=== PATIENT | male | born 1965 | race African-American/Black ===

== ENCOUNTER 2017-08-13 10:23 | Inpatient (IN) | payer SELFPAY ==
[~2017-08-13] VITALS: Ht 160 cm; Wt 67.4 kg
[2017-08-13] VITALS (11 sets, daily range): BP systolic 100–151; BP diastolic 55–84
[2017-08-13 11:36] LABS: Basophils # (auto) 0 uL; Basophils % (auto) 0.1 % (0.0-2.0); Eosinophils # (auto) 0.1 uL; Lymphocytes # (auto) 1.3 uL; Monocytes # (auto) 0.1 uL; White Blood Cell 3.6 10^3/uL (4.4-10.8)
[2017-08-13 11:39] LABS: Eosinophils % (auto) 2.1 % (0.0-7.0); Hematocrit 18.9 % (41.0-53.0); Lymphocytes % (auto) 37.1 % (10.0-50.0); Mean Corpuscular Hgb Conc. 36.4 g/dL (32.0-36.0); Mean Corpuscular Volume 109.9 fL (80.0-100.0); Monocytes % (auto) 1.5 % (0.0-12.0); Neutrophils # (auto) 2.1 uL; Neutrophils % (auto) 59.2 % (37.0-80.0); Platelet Count (auto) 140 10^3/uL (140-450); Red Cell Distribution Width 14.8 % (11.8-14.3)
[2017-08-13 11:39] LABS: Urine RBC None Seen /hpf (0 - 3)
[2017-08-13 12:03] LABS: Urine Bilirubin Negative (Negative); Urine Blood Negative /uL (Negative); Urine Glucose Normal (Normal); Urine Ketone Negative (Negative); Urine Mucus FEW (None Seen); Urine Nitrite Negative (Negative)
[2017-08-13 12:05] LABS: Albumin 4.1 g/dL (3.4-5.0); Alkaline Phosphatase 48 U/L (45-117); Anion Gap 8 (5-15); Aspartate Aminotransferase 95 U/L (15-37); BUN/Creatinine Ratio 18.6; Bilirubin, Total 0.9 mg/dL (0.2-1.0); Blood Urea Nitrogen 18 mg/dL (7-18); Calcium 8.9 mg/dL (8.5-10.1); Carbon Dioxide 27 mmol/L (21-32); Chloride 106 mmol/L (98-107); GFR African American 104 mL/min; GFR Non-African American 86 mL/min; Glucose 96 mg/dL (74-106); Magnesium 2.4 mg/dL (1.6-2.6); Potassium 3.8 mmol/L (3.5-5.1); Sodium 141 mmol/L (136-145); Total Protein 7.6 g/dL (6.4-8.2)
[2017-08-13 12:10] LABS: Hemoglobin 6.9 g/dL (13.5-17.5)
[2017-08-13 12:12] LABS: Urine Color Yellow (Yellow)
[2017-08-13 13:11] LABS: Platelet Estimate Adequate
[2017-08-13 13:12] LABS: Macrocytosis Moderate; Schistocytes FEW; Tear Drop Cells FEW
[2017-08-13] MEDS: SODIUM CHLORIDE 0.9% 1,000 ML IV SCH (14:00)
[2017-08-13] MEDS ORDERED: ACETAMINOPHEN 500 MG TAB PO PRN (14:00)
[2017-08-13] MEDS ORDERED: PANTOPRAZOLE 40 MG/10 ML VIAL IV ONE (14:00)
[2017-08-13] MEDS ORDERED: ONDANSETRON HCL 4 MG/2 ML VIAL IV PRN (14:00)
[2017-08-13 14:54] LABS: Cholesterol 127 mg/dL (< 200); HDL Cholesterol 36 mg/dL (40-59); LDL Cholesterol 70 mg/dL (< 100); Triglycerides 117 mg/dL (< 150)
[2017-08-13 16:11] LABS: Temperature: 23.3 C (20.0-25.0)
[2017-08-13] MEDS: traMADol HCL 50 MG TAB PO PRN (16:53)
[2017-08-13] MEDS ORDERED: LORazepam 2MG/ML-1ML VIAL ONE (16:59)
[2017-08-13] MEDS ORDERED: LORazepam 2MG/ML-1ML VIAL IV ONE (17:00)
[2017-08-13] MEDS ORDERED: LORazepam 2MG/ML-1ML VIAL IV PRN (17:45)
[2017-08-13] MEDS: DOCUSATE SOD 100 MG CAP PO SCH (21:54)
[2017-08-13] MEDS: HYDROCORTISONE 2.5% TOPICAL CREAM 30GM TUBE PR SCH (21:56)
[2017-08-14] MEDS: SODIUM CHLORIDE 0.9% 1,000 ML IV SCH (03:44)
[2017-08-14 04:57] VITALS: BP 108/75
[2017-08-14 06:12] LABS: Basophils # (auto) 0 uL; Eosinophils # (auto) 0 uL; Monocytes # (auto) 0 uL; Neutrophils # (auto) 3.7 uL; White Blood Cell 4.3 10^3/uL (4.4-10.8)
[2017-08-14 06:15] LABS: Basophils % (auto) 0.1 % (0.0-2.0); Eosinophils % (auto) 1.1 % (0.0-7.0); Hemoglobin 8.4 g/dL (13.5-17.5); Lymphocytes # (auto) 0.5 uL; Lymphocytes % (auto) 12.4 % (10.0-50.0); Mean Corpuscular Hemoglobin 37.7 pg (28.0-32.0); Mean Corpuscular Hgb Conc. 36.7 g/dL (32.0-36.0); Mean Corpuscular Volume 102.9 fL (80.0-100.0); Monocytes % (auto) 0.7 % (0.0-12.0); Neutrophils % (auto) 85.7 % (37.0-80.0); Nucleated Red Blood Cells % 0.1 %; Platelet Count (auto) 116 10^3/uL (140-450)
[2017-08-14 06:19] LABS: INR 1.11 (0.9-1.15); Partial Thromboplastin Time 27.2 sec (22.64-33.71); Prothrombin Time 12.1 sec (9.37-12.3)
[2017-08-14 06:23] LABS: Red Cell Distribution Width 23.8 % (11.8-14.3)
[2017-08-14 06:30] LABS: Potassium 4.1 mmol/L (3.5-5.1)
[2017-08-14 06:35] LABS: BUN/Creatinine Ratio 18.2; Calcium 8.3 mg/dL (8.5-10.1)
[2017-08-14 08:16] VITALS: BP 116/74
[2017-08-14 08:27] LABS: Platelet Estimate Decreased
[2017-08-14 08:28] LABS: Anisocytosis Moderate; Macrocytosis Moderate; Ovalocytes FEW; Schistocytes FEW
[2017-08-14 08:29] LABS: Tear Drop Cells FEW
[2017-08-14] MEDS: HYDROCORTISONE 2.5% TOPICAL CREAM 30GM TUBE PR SCH ×2 (10:00→21:02)
[2017-08-14] MEDS: PANTOPRAZOLE 40 MG/10 ML VIAL IV SCH (10:49)
[2017-08-14] MEDS: DOCUSATE SOD 100 MG CAP PO SCH ×2 (10:49→21:02)
[2017-08-14] MEDS ORDERED: CYANOCOBALAMIN (B-12) 1000 MCG/1 ML VIAL SUBCUT ONE (11:15)
[2017-08-14 17:06] VITALS: BP 118/70
[2017-08-14] MEDS: traMADol HCL 50 MG TAB PO PRN (21:02)
[2017-08-15 05:00] VITALS: BP 111/66
[2017-08-15 06:28] LABS: Basophils # (auto) 0 uL; Basophils % (auto) 0.1 % (0.0-2.0); Eosinophils # (auto) 0.1 uL; Lymphocytes # (auto) 0.7 uL; Neutrophils # (auto) 2.5 uL; White Blood Cell 3.4 10^3/uL (4.4-10.8)
[2017-08-15 06:32] LABS: Eosinophils % (auto) 4.2 % (0.0-7.0); Hematocrit 22.6 % (41.0-53.0); Hemoglobin 8.3 g/dL (13.5-17.5); Lymphocytes % (auto) 20.9 % (10.0-50.0); Mean Corpuscular Hgb Conc. 36.9 g/dL (32.0-36.0); Mean Platelet Volume 7.4 fL (6.9-10.8); Monocytes # (auto) 0 uL; Monocytes % (auto) 1.3 % (0.0-12.0); Neutrophils % (auto) 73.5 % (37.0-80.0); Nucleated Red Blood Cells % 0.1 %; Platelet Count (auto) 97 10^3/uL (140-450)
[2017-08-15 06:40] LABS: Red Cell Distribution Width 23.1 % (11.8-14.3)
[2017-08-15 08:15] LABS: Macrocytosis Slight; Ovalocytes FEW; Platelet Estimate Decreased; Tear Drop Cells FEW
[2017-08-15 08:16] LABS: Anisocytosis Moderate
[2017-08-15 08:51] VITALS: BP 122/66
[2017-08-15 09:04] VITALS: BP 125/80
[2017-08-15] MEDS: DOCUSATE SOD 100 MG CAP PO SCH ×2 (10:00→21:58)
[2017-08-15] MEDS: HYDROCORTISONE 2.5% TOPICAL CREAM 30GM TUBE PR SCH ×2 (10:00→22:55)
[2017-08-15] MEDS: CYANOCOBALAMIN 500 MCG TAB PO SCH (10:00)
[2017-08-15] MEDS: PANTOPRAZOLE 40 MG/10 ML VIAL IV SCH (10:00)
[2017-08-15 13:25] VITALS: BP 155/88
[2017-08-15 17:25] VITALS: BP 120/73
[2017-08-15] MEDS: traMADol HCL 50 MG TAB PO PRN (20:27)
[2017-08-15 22:00] VITALS: BP 105/65
[2017-08-16 05:00] VITALS: BP 110/75
[2017-08-16 07:12] LABS: Basophils # (auto) 0 uL; Basophils % (auto) 0.1 % (0.0-2.0); Eosinophils # (auto) 0.1 uL; Hemoglobin 8.8 g/dL (13.5-17.5); Lymphocytes # (auto) 1.2 uL; Mean Corpuscular Hgb Conc. 36.4 g/dL (32.0-36.0); Nucleated Red Blood Cells % 0.1 %; Platelet Count (auto) 92 10^3/uL (140-450); White Blood Cell 3.5 10^3/uL (4.4-10.8)
[2017-08-16 07:15] LABS: Eosinophils % (auto) 4.1 % (0.0-7.0); Hematocrit 24.3 % (41.0-53.0); Mean Corpuscular Hemoglobin 37.1 pg (28.0-32.0); Mean Corpuscular Volume 102.1 fL (80.0-100.0); Mean Platelet Volume 7.3 fL (6.9-10.8); Monocytes # (auto) 0.2 uL; Monocytes % (auto) 4.6 % (0.0-12.0); Neutrophils % (auto) 56.2 % (37.0-80.0)
[2017-08-16 07:21] LABS: Red Cell Distribution Width 23.2 % (11.8-14.3)
[2017-08-16 08:27] LABS: Platelet Estimate Decreased
[2017-08-16 08:28] LABS: Anisocytosis Moderate; Macrocytosis Moderate; Tear Drop Cells FEW
[2017-08-16 08:29] LABS: Ovalocytes FEW
[2017-08-16 09:00] VITALS: BP 117/76
[2017-08-16] MEDS: HYDROCORTISONE 2.5% TOPICAL CREAM 30GM TUBE PR SCH (10:00)
[2017-08-16] MEDS: PANTOPRAZOLE 40 MG/10 ML VIAL IV SCH (10:27)
[2017-08-16] MEDS: DOCUSATE SOD 100 MG CAP PO SCH (10:27)
[2017-08-16] MEDS: CYANOCOBALAMIN 500 MCG TAB PO SCH (10:28)
[2017-08-16 11:28] VITALS: BP 117/76
[2017-08-16 13:00] VITALS: BP 106/72
== END 2017-08-16 13:55 | disposition home or self-care (01) | DRG 379 ==
LOC: ER 10:23 → OVERFLOW 10:24 → EAST 19:50 → TELE-EAST 08-15 20:21
PROVIDERS: ADMIT Internal Medicine; ATTEND Internal Medicine
PROC: 30233N1 Transfusion of Nonautologous Red Blood Cells into Peripheral Vein, Percutaneous Approach (ICD-10-PCS; principal; 2017-08-13)
DX: K92.1 Melena (principal); D69.6 Thrombocytopenia, unspecified; D53.9 Nutritional anemia, unspecified; E53.8 Deficiency of other specified B group vitamins; K64.9 Unspecified hemorrhoids; Z87.891 Personal history of nicotine dependence
CPT/HCPCS: 36415; 36430; 71020; 78452; 80048; 80053; 80061; 81001; 82270; 82607; 82746; 83540; 83550; 83735; 84484; 85025; 85610; 85730; 86850; 86900; 86901; 86920; 93005; 93017; 93306; 96374; 96375; 99291; C9113